=== PATIENT | female | born 1930 | race Caucasian/White ===

== ENCOUNTER 2017-01-25 07:48 | Emergency (ER) | payer MEDICARE, OTHER ==
[~2017-01-25 07:48] MED LIST: ATRV10T PO; CALC600T85 PO; CHOL400C9 PO; CHON250C PO; FOLIC ACID PO; FUR20 PO; LACT1CAP65 PO; LEVO50TA39 PO; LISI-567 PO; MAGN100T5 PO; METO-272 PO; NITR4.9S5 SL; PSYL0.5211 PO
--- NOTE | 2017-01-25 07:51 | ED.REPORT ---
HPI-Allergic Reaction Date of Service Jan 25, 2017 ED Provider: The patient is an 86 year old female with history of hypertension, who was brought to the emergency department by [email or web address] from [facility] for an allergic reaction. The patient noticed mild tongue swelling last night and when she woke up this morning at 0520 her tongue was 3 times its normal side and hanging out of her mouth to the side. She noticed difficulty swallowing and talking. She was given Benadryl 25 mg x2 and solumedrol prior to arrival. At this time her symptoms are improved. Her speech has improved. She denies shortness of breath. She takes 20 mg twice daily and has been taking this medication for 4-5 years. Nursing Notes Stated Complaint: GENERAL Nursing Notes Reviewed: Yes Allergies: Coded Allergies: Penicillins (Verified Allergy, Unknown, UNKNOWN, 04/23/14) Streptomycin (Verified Allergy, Unknown, UNKNOWN, 04/23/14) adhesive (Verified Allergy, Unknown, blisters, 04/23/14) cephalexin (Verified Allergy, Unknown, UNKNOWN, 04/23/14) Scheduled ([Folic Acid ]) 1 MG PO DAILY Atorvastatin (Lipitor) 10 Mg Tab 10 MG PO DAILY Calcium Carbonate (Caltrate 600) 600 Mg Tablet 600 MG PO DAILY Cholecalciferol (Vitamin D3) (Vitamin D3) 400 Unit Capsule 400 UNIT PO DAILY Chondroitin Sulfate A (Chondroitin Sulfate) 250 Mg Capsule 250 MG PO DAILY Furosemide (Furosemide) 20 Mg Tab 20 MG PO DAILY Lactobacillus Acidophilus (Probiotic) 1 Each Capsule 1 EACH PO DAILY Levothyroxine (Levoxyl) 50 Mcg Tablet 50 MCG PO DAILY Lisinopril (Lisinopril) 20 Mg Tablet 20 MG PO DAILY Magnesium Amino Acid Chelate (Magnesium) 100 Mg Tablet 100 MG PO DAILY Metoprolol Succinate ER (Metoprolol Succinate ER) 50 Mg Tab.er.24h 50 MG PO DAILY Nitroglycerin [place] (Nitroglycerin [place]) 4.9 Gm [place] 1 SPRAY SL Q5MIN Psyllium Husk (Metamucil) 0.52 Gm Capsule 0.52 GM PO DAILY General Time Seen by MD: 07:50 Chief Complaint Difficulty swallowing, Swelling Hx Obtained From: Patient, EMS Arrived By: Ambulance Onset Occurred: 5 - 8 hours ago Symptom Duration: Since onset Progression Since Onset: Gradually improving Severity: Current: Mild Severity: Maximum: Moderate Recent Healthcare: No recent doctor visit, No recent hospitalization Similar Sx Previous: No Past Medical History Past Medical History Hypertension Past Surgical History Cholecystectomy Family History Noncontributory Smoking History Unknown if Ever Smoker Social History Lives on [facility] Ambulatory Status Independent Review of Systems Review of Systems Note: +difficulty talking Ears / Nose / Throat: Reports: Tongue swelling Respiratory: Denies: Shortness of breath GI: Reports: Dysphagia Complete sys rev & neg: except as marked. Physical Exam Initial Vital Signs Vital Signs (First) Date Time Temp Pulse Resp B/P Pulse Ox O2 Delivery O2 Flow Rate FiO2 01/25/17 07:52 36.7 62 20 156/49 96 Room Air 01/25/17 10:13 2 Initial VS: Reviewed, Vital signs abnormal Head / Eyes: Atraumatic, Normocephalic, PERRL Neck: Supple, Non-tender, Full range of motion Lymphatic: No lymphadenopathy Extremities: Vascular intact, Neuro intact, No swelling, No tenderness Neurologic: Alert, Oriented, Nonfocal Psychiatric: Mood/affect normal, Behavior normal, Normal thought content General/Constitutional: Awake, Alert, Cooperative Respiratory / Chest: Atraumatic, Breath sounds NL, Breath sounds = bilat, No respiratory distress, No rales, No rhonchi, No wheezing, No retractions, No stridor Cardiovascular: Heart rate NL, Regular rhythm, Heart sounds NL, No gallop, No murmurs, No rubs, Peripheral circulation NL Skin: Color NL, No rash, Warm, Dry ENT: Mucous membranes moist Left side of tongue is about twice the size as the right. Abdomen: Soft Right-sided abdominal pain Re-Eval/Medical Decision Med Decision/Clinical Course The patient presented with angioedema was already improving. It is likely related to her lisinopril. She is given IV Pepcid and continued to improve and was discharged after a period of observation. Source of Hx: Old records, EMS Re-Evaluation/Progress : Time of Eval: 10:26 Re-Evaluation/Progress Note: The swelling has continued to improve. She is able to speak and swallow normally. Discussed plan for discharge. Return to emergency department warnings were given. Counseled Regarding: Diagnosis, Lab results, Need for follow-up, When/why to return to ED Discharge & Departure Primary Impression: Adverse reaction to ABY inhibitor drug Encounter type: initial encounter Qualified Code: T46.4X5A - Adverse effect of vxysffdgumt-qbxrhkdspi-yhuynp inhibitors, initial encounter Additional Impression: Angioedema Encounter type: initial encounter Qualified Code: T78.3XXA - Angioneurotic edema, initial encounter Disposition: Home Discharge Condition All VS Reviewed: Yes Condition: Stable Additional Instructions: Thank you for entrusting us with your care today. Your swelling has improved during your visit in the emergency department. Discontinue the lisinopril immediately. You need to see your regular doctor as soon as possible to get started on a different blood pressure medication. Use Benadryl as needed. Return to the emergency department if you develop increased tongue swelling or throat swelling, difficulty breathing, difficulty swallowing, rash, or any other new or concerning symptoms. Referrals: Saji Lerma MD (PCP) Scribe Attestation Portions of this note were transcribed by Bria Acosta. I, Dr. Perez personally performed the history, physical exam and medical decision-making; I reviewed and confirmed the accuracy of the information in the transcribed note. Signed by: Pino Grover, 01/25/2017 at 1045. copies to: Saji Lerma MD, Jena M MD Jan 25, 2017 07:51 Bria Acosta Jan 25, 2017 07:57
[2017-01-25 07:52] VITALS: BP 156/49; PULSE 62; RESP 20; O2SAT 96
[2017-01-25] MEDS ORDERED: Famotidine Inj 20 MG in IV Premix 1 EACH IV ONE (08:00)
[2017-01-25 10:13] VITALS: BP 131/45; PULSE 70; RESP 20; O2SAT 93
[2017-01-25 11:32] VITALS: BP 147/87; PULSE 63; RESP 20; O2SAT 94
[2017-03-27] MEDS ORDERED: GLUC100016 PO (12:31)
[2017-03-27] MEDS ORDERED: PANT40TA3 PO (12:31)
[2017-03-27] MEDS ORDERED: ACET325T51 PO (12:31)
== END 2017-01-25 11:33 | disposition home or self-care (01) ==
LOC: EDBD 07:48 → SED 07:48
DX: T46.4X5A Adverse effect of angiotensin-converting-enzyme inhibitors, initial encounter (principal); T78.3XXA Angioneurotic edema, initial encounter; X58.XXXA Exposure to other specified factors, initial encounter; Y93.89 Activity, other specified; Y92.9 Unspecified place or not applicable; Y99.8 Other external cause status; I10 Essential (primary) hypertension; Z88.0 Allergy status to penicillin; Z88.1 Allergy status to other antibiotic agents
CPT/HCPCS: 96374; 99284; J3490

== ENCOUNTER 2017-03-28 11:51 | Day surgery (SDC) | payer MEDICARE, OTHER ==
[~2017-03-28] VITALS: Ht 157.5 cm; Wt 70.0 kg
[~2017-03-28 11:51] MED LIST changes: +ACET325T51 PO; -ATRV10T PO; +GLUC100016 PO; +PANT40TA3 PO
[2017-03-28] MEDS ORDERED: Propofol 10,000 mCg/mL 20 mL Inj ONE (11:52)
[2017-03-28 12:15] VITALS: BP 148/63; PULSE 61; RESP 16; O2SAT 100
[2017-03-28] MEDS ORDERED: SPIR25TA3 PO (12:19)
[2017-03-28] MEDS ORDERED: Lactated Ringer's 1,000 ML IV SCH (13:12)
--- NOTE | 2017-03-28 13:12 | PCM.HPANE ---
Patient Data Surgeon Admitting Provider: Attending Provider:Sunday Pardo MD Primary Care Physician:Saji Lerma MD Other Provider:Nilton Beck Anesthesia Reason for Visit Abdominal Pain Ht/WT & BMI Height (Feet): 5 Height (Inches): 2 Weight (Kilograms): 70 Body Mass Index 28.00 Allergies Coded Allergies: Penicillins (Verified Allergy, Unknown, UNKNOWN, 04/23/14) adhesive (Verified Allergy, Unknown, blisters, 04/23/14) cephalexin (Verified Allergy, Unknown, UNKNOWN, 04/23/14) streptomycin (Verified Allergy, Unknown, UNKNOWN, 04/23/14) Past Anesthesia History Anesthesia History: Positive for:: Anesthesia Reactions (states she goes into shock), Denies:: Abnormal Airway, Difficult Intubation, Fam Anesthesia Reaction, Fam Malignant Hypertherm, Malignant Hyperthermia Diabetes History Hx Diabetes?: No MRSA MRSA: No Medications Hypertension Medication: Yes Home Meds Incl Beta Oni: Yes Date Beta Oni Taken: Mar 28, 2017 Time Beta Oni Taken: 0700 Reported Medications Spironolactone 25 Mg Zavhvt15 Mg PO DAILY #30 TABLET Ref 0 03/28/17 Acetaminophen 325 Mg Xpfigi958 Mg PO Q4H PRN For Fever Ref 0 03/27/[address] 40 Mg Tablet.dr40 Mg PO DAILY Ref 0 03/27/17 Glucosamine Sulfate 2Kcl (Glucosamine)1,000 Mg Tablet1,500 Mg PO DAILY 03/27/17 Psyllium Husk (Metamucil)0.52 Gm Capsule0.52 Gm PO DAILY 04/23/14 Magnesium Amino Acid Chelate (Magnesium)100 Mg Juoupk827 Mg PO DAILY 04/23/14 Metoprolol Succinate ER 50 Mg Tab.er.24h50 Mg PO DAILY 30 Days Ref 0 04/16/14 Levothyroxine (Levoxyl)50 Mcg Iwmtli49 Mcg PO DAILY 30 Days Ref 0 04/16/14 Furosemide 20 Mg Tab20 Mg PO DAILY 30 Days Ref 0 04/16/14 Lactobacillus Acidophilus (Probiotic)1 Each Capsule1 Each PO DAILY 02/01/14 [Folic Acid ] No Conflict Check1 Mg PO DAILY 01/28/14 Chondroitin Sulfate A (Chondroitin Sulfate)250 Mg Bucefzb441 Mg PO DAILY 01/28/14 Nitroglycerin [place] 4.9 Gm Spray1 [place] SL Q5MIN #1 SPRAY 01/28/14 Discontinued Reported Medications Calcium Carbonate (Caltrate 600)600 Mg Fdruhn083 Mg PO DAILY 04/23/14 Lisinopril 20 Mg Uokmzi32 Mg PO DAILY 30 Days Ref 0 04/16/14 Cholecalciferol (Vitamin D3) (Vitamin D3)400 Unit Fqshnmd913 Unit PO DAILY 30 Days 04/16/14 Atorvastatin (Lipitor)10 Mg Tab10 Mg PO DAILY 30 Days Ref 0 04/16/14 History History of ENT Problems?: Yes HEENT History: Positive for:: Sinus Problem (S/P SEPTOPLASTY HX OF ENVIRONMENTAL ALLERGIES) Denies:: Abnormal Airway Difficult Intubation Dysphagia Hearing Problem Denture Type: Full- Upper Full- Lower Teeth Condition: Within Normal Limits Hx of Heart Problems?: Yes Cardiovascular History: Positive for:: Edema Heart Murmur (PT 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"-NO WORKUP FOUND-OR 01/2014 W/O PROBLEMS) Hypertension Denies:: AICD Atrial Fibrillation Cardiac Surgery Chest Pain Congestive Heart Failure Irregular Heartbeat Pacemaker Thrombophlebitis Valvular Heart Disease Hx of Respiratory Problem?: Yes Respiratory History: Positive for:: COPD Dyspnea (ANDRES) Oxygen Administration (2L/NIGHT) Pneumonia Pulmonary Embolism (2000) Denies:: Asthma Chest Surgery Cough Emphysema Hemoptysis Tuberculosis Use of C-PAP Machine Hx Neurologic Problems?: No Neurological History: Denies:: CVA Dementia Hx of GI Problems?: Yes Hx of Problems?: Yes HX of Peritoneal Dialysis: No Female Hx: Positive for:: Problems with Breasts? (S/P BENIGN BREAST BS) Denies:: Currently (S/P C/S X3) Endometriosis Pelvic Inflammatory Skin History: Denies:: History Skin Disorders? (S/P EXC SQUAMOUS CELL CA NECK ECZEMA) Pressure Ulcers Hx Musculoskeletal Problems?: Yes Musculoskeletal History: Positive for:: Back Injury Degenerative Joint Joint Replacement (hip) Denies:: Fibromyalgia Musculoskeletal Trauma Hx of Psycho/Social Problems?: No Psycho Social History: Denies:: Anxiety Hx Depression Hx Surgeries?: Yes (hysterectomy, c-sectx3, hip, hemorroidectomy,gallbladder, tonsillectomy,) Hx Any Other Health Problems?: Yes Other History: Positive for:: Cancer (skin cancer) Hospitalization Thyroid Disease Denies:: Endocrine Disease History Blood Transfusions: Positive for:: Blood Transfusions Denies:: Blood Transfuse Reaction Hx Diabetes: No Hx Alcohol Use: Yes (scotch daily)Hx Substance Use: No Smoking Status: Unknown if Ever Smoker Have You Smoked inLast 12 mo: No Stop/Bang Treated for Sleep Apnea?: No Do You Have a CPAP Machine?: No S-Snoring: Do You Snore Loudly: Yes T-Tired: feel tired, fatigued: Yes P-Blood Pressure: treated: No B- Body Mass Index > 35 kg/m2: No A- Age over 50: Yes N- Neck Large Circumference: No G- Gender Male: No JEISON Risk Assessment: Low Risk, <3 Yes Risk Assessment Category Category 1A: Patient has history of documented sleep apnea, and HAS NOT received any narcotic, sedative or anesthesia administration during this stay. Category 1B: Patient has history of documented sleep apnea, and HAS received any narcotic , sedative or anesthesia administration during this stay Category 2: Patient has SUSPECTED Obstructive Sleep Apnea, and HAS received any narcotic , sedative or anesthesia administration during this stay. Category 3: Patient has SUSPECTED Obstructive Sleep Apnea and HAS NOT received narcotic, sedative or anesthesia administration during this stay. Category 4: Outpatient in Procedural Areas with known sleep apnea or who screen positive for High Risk via the STOP/BANG questionnaire. Exam Exam Vital Signs Vital Signs Date Time Temp Pulse Resp B/P Pulse Ox O2 Delivery O2 Flow Rate FiO2 03/28/17 12:15 36.7 61 16 148/63 100 Room Air General Appearance: Oriented X3 HEENT/AIRWAY: MP 2 Lungs: Normal Air Movement Heart: Regular Rate/Rhythm Plan Impression Patient chart reviewed, patient interviewed and anesthestic plan with risks, benefits, and alternatives discussed, and informed consent obtained. ASA Physical Status: ASA3 Severe Disease Anesthetic Plan: MAC Bene/Risks/Altern/Consents: Yes HP Complete Prior to Induction: Yes Landry Horne MD Mar 28, 2017 13:11
[2017-03-28] MEDS ORDERED: Ondansetron 2 mg/mL 2 mL Inj IVPUSH PRN (13:15)
[2017-03-28] MEDS ORDERED: MetoCLOpramide 5 mg/mL 2 mL Inj IVPUSH PRN (13:15)
[2017-03-28] MEDS: Lactated Ringer's 1,000 ML IV ONE ×2 (13:23→14:03)
--- NOTE | 2017-03-28 14:29 | PCM.ENDEGD ---
EGD Date of Service: Mar 28, 2017 Physician Sunday Pardo MD Pre Procedure Diagnosis: Abdominal pain Post Procedure Dx & Findings: Gastritis Procedure Esophagogastroduodenoscopy PROCEDURE IN DETAIL: After proper sedation, Olympus video endoscope was inserted into patient's mouth and esophagus was successfully intubated. Scope introduced esophagus. Esophagus showed normal shiny whitish mucosa consistent with squamous cell component. Z line was intact at 40 cm from the incisors. Scope further events to the stomach. The entire stomach show atrophy redness consistent with diffuse gastritis. Significant amount of bilious material noted. Cardia fundus body antrum pylorus were all visualized. Retroflexion was done. Stomach was easily inflated and deflatable using air. Scope further events to the distal duodenum. Duodenum revealed normal villous structures with normal appearing folds without any mass ulcer erosion. Impression Suspect bilious gastritis biopsy obtained Recommendation Follow up in GI clinic Presedation Assessment Risks and Benefits Informed consent was obtained from the patient after all risks and benefits including but not limited to drug reaction, infection, pain, bleeding, perforation, as well as alternatives were discussed. Patient monitoring Continuous pulse oximetry, cardiac monitoring, blood pressure monitoring, IV access, and oxygen at 2L per nasal cannula. Complications There were no periprocedural complications identified. Post Procedure Plan Post Procedure Recommendations 1. Restrict activities today. 2. Resume normal activities in the morning. 3. Resume medications. 4. GERD behavioral modification: - Avoid fatty, acidic, spicy, large meals - Do not lie down after meals - Do not eat or drink anything for at least 2 1/2 hours before going to bed at night - Discontinue tobacco and alcohol - Decrease or avoid caffeine - Avoid chocolate and mints - Decrease weight - Avoid aspirin and non steroidal anti-inflammatory agents (NSAID) such as Aleve, Advil, Mobic, Naproxen, Ibuprofen, etc 5. Add proton pump inhibitor. Take 30 minutes before 1st meal of the day. 6. Patient informed of normal post procedure side effects as bloating, drowsiness, blood streaking in the stool 7. If gastric biopsy reveal H.pylori, continue with appropriate treatment 8. If small bowel biopsy reveals celiac, continue with appropriate treatment 9. Please don't hesitate to call me with any questions Sunday Pardo MD Mar 28, 2017 14:29
--- NOTE | 2017-03-28 14:31 | PCM.ENDCOL ---
Colonoscopy Date of Service: Mar 28, 2017 Physician Sunday Pardo MD Pre Procedure Diagnosis: Personal history of colon polyp Post Procedure Dx & Findings: Polyps hemorrhoids diverticula Procedure Colonoscopy PROCEDURE IN DETAIL: Prep fair After unremarkable rectal examination the Olympus video colonoscope was inserted patient's anal canal and was advanced to cecum. Landmarks were identified including the ileocecal valve and appendiceal orifice. Scope was withdrawn systematically. Visualized colonic mucosa showed healthy shiny mucosa with normal healthy-appearing vasculature. In the cecum, there was a 2 mm polyp which was removed completely using cold snare. Also in the ascending colon, there were total of 5 polyps. These were about 2-5 mm in size. These were all resected completely using cold snare. The cecum and the ascending polyps were placed in one bile call right colon. In the transverse colon, there was a 8 mm polyp which was removed completely using hot snare. In the sigmoid colon there was a 3 mm polyp which was removed completely using cold snare. Patient had diffuse diverticuli mostly in the sigmoid all the way up to the ascending colon. In the rectum retroflexion was done which showed hemorrhoids. Anal canal was inspected carefully on the way out and hemorrhoids noted. Impression Fair prep Polyp 7 status post complete removal Personal history of colon polyp Diverticuli Hemorrhoids Recommendation Repeat colonoscopy 1 year Diverticular diet Presedation Assessment Risks and Benefits Informed consent was obtained from the patient after all risks and benefits including but not limited to drug reaction, infection, pain, bleeding, perforation, as well as alternatives were discussed. Patient monitoring Continuous pulse oximetry, cardiac monitoring, blood pressure monitoring, IV access, and oxygen at 2L per nasal cannula. Complications There were no periprocedural complications identified. Post Procedure Plan Post Procedure Recommendations 1. Restrict activities today. 2. Resume normal activities in the morning. 3. Resume medications. 4. Patient informed of normal post procedure side effects as bloating, drowsiness, blood streaking in the stool. 5. average risk CRCS. If colon polyps come back as: -Hyperplastic- can repeat colonoscopy in 10 years -Tubular adenoma- repeat colonoscopy in 5 years -Tubulovillous/villous adenoma- repeat colonoscopy in 3 years -If any dysplasia- return to clinic as soon as possible 6. Please don't hesitate to call me with any questions. Sunday Pardo MD Mar 28, 2017 14:31
[2017-03-28 14:32] VITALS: BP 120/56
[2017-03-28 14:42] VITALS: BP 135/54; PULSE 55; RESP 16; O2SAT 94
--- NOTE | 2017-03-28 14:45 | PCM.ANEP1 ---
Post Anesthesia PACU Phase 1 Assessment Vital Signs Vital Signs Date Time Temp Pulse Resp B/P Pulse Ox O2 Delivery O2 Flow Rate FiO2 03/28/17 14:32 120/56 03/28/17 12:15 36.7 61 16 148/63 100 Room Air Anesthetic Administered: MAC Level of Alertness: Awake, talking Pain: No Nausea or Vomiting: No CV Function & Hydration Stable: Yes Airway Device: Lungs: Normal Air Movement PACU Phase 2 Assessment Patient Instructions Provided: N/A Landry Horne MD Mar 28, 2017 14:45
[2017-03-28 14:52] VITALS: BP 183/70; PULSE 58; RESP 16; O2SAT 94
[2017-03-28 15:02] VITALS: BP 182/81; PULSE 57; RESP 16; O2SAT 95
--- NOTE | 2017-04-02 15:09 | PATH ---
SURGICAL PATHOLOGY Attending Physician:Sunday Pardo M.D. CASE STATUS: Signed Out PATIENT NAME: VERONIQUE CHUN PID: [id number] : 1930 DATE COLLECTED:03/28/2017 00:00 SPECIMEN: 1: Gastric, Biopsy 2: Colon, Biopsy 3: Colon, Biopsy 4: Colon, Biopsy CLINICAL HISTORY: 1). GASTRIC BIOPSY 2). RIGHT COLON BIOPSY POLYP X5 3). TRANSVERSE COLON POLYP X1 4). SIGMOID COLON POLPY X1 FINAL DIAGNOSIS: 1. Gastric biopsy: Portions of gastric antral mucosa with mild chronic gastritis. No definite H. pylori organisms identified by H&E stain. Immunohistochemistry studies pending; results will be reported as an addendum. Negative for intestinal metaplasia, dysplasia or malignancy. 2. Right Colon Polyps, Biopsies: Multiple portions of tubular adenoma (approximately 6); negative for high-grade dysplasia. 3. Transverse Colon Polyp, Biopsy: Tubular adenoma; negative for high-grade dysplasia. 4. Sigmoid Colon Polyp, Biopsy: Superficial portion of colorectal mucosa with no diagnostic abnormality. ICD10: K63.5 NOTE: Part 4: Additional levels through the block are non-contributory. GROSS DESCRIPTION: The specimen is received in four formalin filled containers labeled with the patient's name. 1). The specimen is sublabeled "gastric" and consists of 2 portions of tissue which aggregate to 0.3 x 0.3 x 0.2 CM. The specimen is entirely submitted in cassette 1A. 2). The specimen is sublabeled "right colon polyps" and consists of multiple portions of tissue which aggregate to 0.6 x 0.5 x 0.3 CM. The specimen is entirely submitted in cassette tissue A. 3). The specimen is sublabeled "transverse colon polyp" and consists of a 0.5 x 0.4 x 0.4 CM portion of tissue which is entirely submitted in cassette 3A. 4). The specimen is sublabeled "sigmoid colon polyp" and consists of a 0.2 x 0.2 x 0.2 CM portion of tissue which is entirely submitted in cassette 4A. 03/29/2017 [facility] ICD-9 CODES: CPT CODES: 1: 71730, 74124 2: 20534 3: 64164 4: 28055 PROCEDURE/ADDENDA: Addendum SPI Addendum Diagnosis {Not Entered} Addendum Comment IMMUNOHISTOCHEMISTRY RESULTS: 1. Gastric Biopsy: Negative for Helicobacter organisms by immunohistochemistry studies. Electronically Signed Out Yohana Kern MD Electronically Signed Out Yohana Kern MD [facility] [address], [place] [address] Technical component performed at [facility], [facility] [address], [place], [address]
== END 2017-03-28 23:59 | disposition home or self-care (01) ==
LOC: END 11:51
PROVIDERS: ATTEND Internal Medicine
DX: Z12.11 Encounter for screening for malignant neoplasm of colon (principal); Z86.010 Personal history of colon polyps; Z80.0 Family history of malignant neoplasm of digestive organs; D12.3 Benign neoplasm of transverse colon; D12.2 Benign neoplasm of ascending colon; D12.0 Benign neoplasm of cecum; K64.9 Unspecified hemorrhoids; K57.30 Diverticulosis of large intestine without perforation or abscess without bleeding; K29.50 Unspecified chronic gastritis without bleeding; R10.9 Unspecified abdominal pain; R19.4 Change in bowel habit; K21.9 Gastro-esophageal reflux disease without esophagitis; I10 Essential (primary) hypertension; I25.10 Atherosclerotic heart disease of native coronary artery without angina pectoris; J43.8 Other emphysema; I27.81 Cor pulmonale (chronic); I34.0 Nonrheumatic mitral (valve) insufficiency; Z99.81 Dependence on supplemental oxygen; Z86.711 Personal history of pulmonary embolism; Z85.828 Personal history of other malignant neoplasm of skin; Z90.710 Acquired absence of both cervix and uterus
CPT/HCPCS: 43239; 45380; 45385; J7120